=== PATIENT | male | born 1980 | race Caucasian/White ===

== ENCOUNTER 2018-08-26 08:39 | Inpatient (IN) ==
[2018-08-26] MEDS ORDERED: Isovue-370 500 ML BOTTLE IVP ONE (09:25)
[2018-08-26] MEDS ORDERED: Ondansetron 4 MG/2 ML VIAL IVP ONE (09:25)
[2018-08-26] MEDS ORDERED: Clindamycin 900 MG/50 ML 900 MG/50 ML IV.SOLN IVPB ONE (09:25)
[2018-08-26] MEDS ORDERED: Ketorolac 15 MG/ML VIAL IVP ONE (09:25)
--- NOTE | 2018-08-26 09:35 | Emergency Department Note ---
Disposition Clinical Impression: Facial cellulitis Disposition: Admitted As Inpatient Condition: Fair Dental HPI - General Chief complaint: ED Dental/Oral Stated complaint: swollen R face Time Seen by Provider: 08/26/18 08:47 Source: patient Mode of arrival: private vehicle Limitations: no limitations Nursing Notes Reviewed: Yes Vital Signs Reviewed: Yes - History of Present Illness Pt Subjective Complaint: facial pain, facial swelling, gingival pain/swelling 1 - tender, edematous Onset (ago): day(s) Duration: constant Pain Severity: mild Improves with: nothing Worsens with: chewing Context: history of dental caries, poor dental care, spontaneous Associated symptoms: Reports: gum swelling. Denies: fever, tongue swelling, pain with swallowing, ear pain, sore throat Treatment prior to arrival: none - Related Data Previous Rx's Medication Instructions Recorded Sulfacetamide Sodium 10% OPTH 2 drop RIGHT EYE QID 5 Days #1 09/18/17 [Bleph 10] bottle Allergies Allergy/AdvReac Type Severity Reaction Status Date / Time No Known Allergies Allergy Verified 09/18/17 18:20 All systems ED: reviewed and negative except as stated. Review of Systems: As Per HPI Constitutional: Denies: fever, chills, weakness Eyes: Denies: eye pain, eye discharge, vision change ENT ED: Denies: ear pain, throat pain, congestion, dysphagia Cardiovascular: Denies: chest pain, palpitations, dyspnea on exertion Respiratory: Denies: cough, dyspnea, stridor Gastrointestinal: Denies: abdominal pain, nausea, vomiting Musculoskeletal: Denies: neck pain Neurological: Denies: headache, weakness, numbness, paresthesias, vertigo Psychiatric: Denies: homicidal thoughts Hematological/Lymphatic: Denies: easy bleeding, easy bruising, lymphadenopathy Allergic/Immunologic: Reports: facial swelling Past Medical History - Past Medical History Attestation: Yes The following information was validated with the patient. Source: patient Medical history: Reports: no medical history Psychiatric history: Reports: no psych history - Social History Smoking Status: Current every day smoker Smokeless Tobacco Status: No Alcohol use: Reports: occasionally Drug use: Reports: none Physical Exam - General Limitations: no limitations General appearance: alert, in no apparent distress - Head Head exam: atraumatic, normocephalic, normal inspection - Eye Eye exam: Present: normal appearance, PERRL, EOMI, periorbital swelling (inferior, right, mild). Absent: scleral icterus, conjunctival injection, nystagmus, miosis, mydriasis, periorbital tenderness - ENT ENT exam: mucous membranes moist - Expanded ENT Exam External ear exam: Present: normal external inspection. Absent: mastoid tenderness, periauricular adenopathy Nose exam: sinus tenderness (right maxillary). negative: rhinorrhea Mouth exam: Present: tongue normal, other (Canine space edema and mild ten derness). Absent: drooling, trismus, lip swelling, tongue elevation, tounge swelling, laceration Teeth exam: Present: dental caries, gingival swelling 1 - Fractured (all teeth are fractured at or near the alveolar ridge), Dental Tenderness Throat exam: Present: normal inspection. Absent: tonsillar erythema, tonsillomegaly, tonsillar exudate, R peritonsillar mass, L peritonsillar mass, muffled voice - Neck Neck exam: Present: normal inspection, full ROM, trachea midline. Absent: tenderness, meningismus, lymphadenopathy - Chest Chest inspection: Present: normal inspection - Respiratory Respiratory exam: Present: normal lung sounds bilaterally. Absent: respiratory distress, wheezes, stridor - Cardiovascular Cardiovascular exam: Present: regular rate, normal rhythm, normal heart sounds - Extremities Exam Extremities exam: Present: normal inspection - Neurological Exam Neurological exam: Present: alert, oriented X3, CN II-XII intact, normal gait - Psychiatric Psychiatric exam: Present: normal affect, normal mood - Skin Skin exam: Present: warm, dry, intact, normal color Course Course Narrative: Patient presents for evaluation of right facial swelling and pain. The pain started a couple days ago he woke up this morning with significant swelling of the face. He denies paresthesias, vision changes, fever, chills, nausea, vomiting. He has very poor dentition with several fractured and decaying teeth. No obvious oral abscess amenable to draining. Vitals are normal he is afebrile. Labs, meds, and facial CT ordered. CT shows extensive cellulitis of the right side of the face extending into the neck. Case discussed with Dr. Cezar Yang. He agrees with the plan to admit the patient given the extensive cellulitis. He states that he will see the patient after the patient has received at least a day of IV antibiotics. Case discussed with hospitalist. She has accepted the patient for admission. Vital Signs Temperature 97.4 F L 08/26/18 08:41 Pulse Rate 89 08/26/18 08:41 Respiratory Rate 14 08/26/18 08:41 Blood Pressure 122/82 08/26/18 08:41 O2 Sat by Pulse Oximetry 97 08/26/18 08:41 Temperature 97.6 F 08/26/18 15:48 Pulse Rate 80 08/26/18 15:48 Respiratory Rate 16 08/26/18 15:48 Blood Pressure 136/78 08/26/18 15:48 O2 Sat by Pulse Oximetry 100 08/26/18 15:48 Oxygen Delivery Oxygen Delivery Room Air Dental/Oral - Medical Records Medical records reviewed: Yes I reviewed the patient's medical records. - Lab Data Lab results reviewed: Yes I reviewed the patient's lab results. Lab results narrative: Laboratory Last Values WBC 14.0 K/mcL (4.3-11.1) H 08/26/18 09:47 RBC 4.91 M/mcL (4.19-5.50) 08/26/18 09:47 Hgb 15.2 g/dL (12.9-16.9) 08/26/18 09:47 Hct 45.5 % (37.5-50.1) 08/26/18 09:47 MCV 92.7 fL (83.0-100.0) 08/26/18 09:47 MCH 31.0 pg (28.0-33.3) 08/26/18 09:47 MCHC 33.4 g/dL (31.6-35.5) 08/26/18 09:47 RDW 12.5 % (11.5-14.5) 08/26/18 09:47 Plt Count 223 K/mcL (140-400) 08/26/18 09:47 MPV 10.0 fL (9.4-12.4) 08/26/18 09:47 Immature Gran % 0.2 % (0-4) 08/26/18 09:47 Seg Neutrophils % 76.3 % 08/26/18 09:47 14.9 % 08/26/18 09:47 7.6 % 08/26/18 09:47 0.6 % 08/26/18 09:47 0.4 % 08/26/18 09:47 10.7 K/mcL (1.6-8.9) H 08/26/18 09:47 2.1 K/mcL (0.6-4.6) 08/26/18 09:47 1.1 K/mcL (0.0-1.3) 08/26/18 09:47 0.1 K/mcL (0.0-0.6) 08/26/18 09:47 0.1 K/mcL (0.0-0.2) 08/26/18 09:47 Sodium 139 mEq/L (136-145) 08/26/18 09:47 Potassium 4.0 mEq/L (3.5-5.1) 08/26/18 09:47 Chloride 103 mEq/L (98-107) 08/26/18 09:47 Carbon Dioxide 29 mEq/L (23-29) 08/26/18 09:47 BUN 6 mg/dL (6-20) 08/26/18 09:47 1.02 mg/dL (0.70-1.30) 08/26/18 09:47 Est GFR ( Amer) > 60 (> 60) 08/26/18 09:47 Est GFR (Non-Af Amer) > 60 (> 60) 08/26/18 09:47 6 (6-26) 08/26/18 09:47 Glucose 105 mg/dL (70-105) 08/26/18 09:47 286 (280-300) 08/26/18 09:47 Calcium 9.9 mg/dL (8.6-10.3) 08/26/18 09:47 Result diagrams: 08/26/18 09:47 08/26/18 09:47 Lab Results 08/26/18 08/26/18 Range/Units 09:47 09:47 WBC 14.0 H (4.3-11.1) K/mcL RBC 4.91 (4.19-5.50) M/mcL Hgb 15.2 (12.9-16.9) g/dL Hct 45.5 (37.5-50.1) % MCV 92.7 (83.0-100.0) fL MCH 31.0 (28.0-33.3) pg MCHC 33.4 (31.6-35.5) g/dL RDW 12.5 (11.5-14.5) % Plt Count 223 (140-400) K/mcL MPV 10.0 (9.4-12.4) fL Immature Gran % 0.2 (0-4) % Seg Neutrophils % 76.3 % Lymphocytes % 14.9 % Monocytes % 7.6 % Eosinophils % 0.6 % Basophils % 0.4 % Neutrophils # 10.7 H (1.6-8.9) K/mcL Lymphocytes # 2.1 (0.6-4.6) K/mcL Monocytes # 1.1 (0.0-1.3) K/mcL Eosinophils # 0.1 (0.0-0.6) K/mcL Basophils # 0.1 (0.0-0.2) K/mcL Sodium 139 (136-145) mEq/L Potassium 4.0 (3.5-5.1) mEq/L Chloride 103 (98-107) mEq/L Carbon Dioxide 29 (23-29) mEq/L BUN 6 (6-20) mg/dL Creatinine 1.02 (0.70-1.30) mg/dL Est GFR ( Amer) > 60 (> 60) Est GFR (Non-Af Amer) > 60 (> 60) BUN/Creatinine Ratio 6 (6-26) Glucose 105 (70-105) mg/dL Calculated Osmolality 286 (280-300) Calcium 9.9 (8.6-10.3) mg/dL - Radiology Data Radiology results reviewed: Yes I reviewed the patient's radiology results. Face CT 08/26/18 09:25 IMPRESSION: 1. Extensive right facial, right submandibular, and right neck cellulitis. Reactive right submandibular lymphadenopathy. 2. No discrete fluid collection to suggest abscess. 3. Circumferential inflammatory right maxillary sinus mucosal thickening. 4. Numerous dental caries and periodontal disease. D/ / Kenya Pedersen MD / Kenya Pedersen MD Interpreting Provider: Kenya Pedersen MD
[2018-08-26 09:59] LABS: Basophils # 0.1 K/mcL (0.0-0.2); Basophils % 0.4 %; Eosinophils # 0.1 K/mcL (0.0-0.6); Eosinophils % 0.6 %; Hematocrit 45.5 % (37.5-50.1); Hemoglobin 15.2 g/dL (12.9-16.9); Immature Granulocytes % 0.2 % (0-4); Lymphocytes # 2.1 K/mcL (0.6-4.6); Lymphocytes % 14.9 %; Mean Corpuscular HGB Conc 33.4 g/dL (31.6-35.5); Mean Corpuscular Volume 92.7 fL (83.0-100.0); Monocytes # 1.1 K/mcL (0.0-1.3); Monocytes % 7.6 %; Neutrophils # 10.7 K/mcL (1.6-8.9); Platelet Count 223 K/mcL (140-400); Red Blood Count 4.91 M/mcL (4.19-5.50); Red Cell Distribution Width 12.5 % (11.5-14.5); Segmented Neutrophils % 76.3 %
[2018-08-26 10:18] LABS: BUN/Creatinine Ratio 6 (6-26); Blood Urea Nitrogen 6 mg/dL (6-20); Calcium 9.9 mg/dL (8.6-10.3); Carbon Dioxide 29 mEq/L (23-29); Chloride 103 mEq/L (98-107); Glucose 105 mg/dL (70-105); Osmolality,Calculated 286 (280-300); Sodium 139 mEq/L (136-145); eGFR For Non-African Americans > 60 (> 60)
[2018-08-26] MEDS ORDERED: 0.9 % Sodium Chloride 1,000 ML IVC ONE (11:53)
[2018-08-26] MEDS ORDERED: Naloxone 0.4 MG/ML INJ IVP PRN (13:34)
[2018-08-26] MEDS ORDERED: Ampicillin/Sulbactam 3,000 MG in 0.9 % Sodium Chloride Mini Bag 100 ML IVPB SCH (13:50)
--- NOTE | 2018-08-26 13:57 | Internal Med History&Physical ---
Date of Encounter: 08/26/18 Time of Encounter: 14:00 Internal Medicine - H&P: HPI Chief complaint: Facial swelling for one day History of present illness: Mr. Meza is a 37 year old male with no significant pmh presenting with complaints of facial swelling of 1 day duration. Patient has extensive disease in his right canines and says he has had occasional pain in the teeth here and there. He denies any fevers or chills. He says for the past one day, the right side of his face has had progressive swelling. He denies any difficulty swallowing or trouble breathing. He denies any other acute symptoms. In the ER, OMFS was consulted and requested admission for IV antibiotics to reduce his facial swelling after which the teeth could be taken out on discharge. He was given one dose of IV clindamycin and he is being admitted for further management Past Med Surg Social Fam HX - Past Medical History Medical history: no medical history Psychiatric history: no psych history - Social History Smoking Status: Current every day smoker Smokeless Tobacco Status: No Alcohol use: occasionally Drug use: none Internal Medicine - H&P: Meds Sulfacetamide Sodium 10% OPTH [Bleph 10] 2 drop RIGHT EYE QID 5 Days #1 bottle 09/18/17 [Rx] Allergy/AdvReac Type Severity Reaction Status Date / Time No Known Allergies Allergy Verified 09/18/17 18:20 All Systems PM: A 10-system review of systems was performed and is negative for pertinent findings except as documented above in the HPI. - Constitutional Constitutional: no chills, no fever(s), no night sweats Additional comments: facial swelling - EENT Eyes: no change in vision, no discharge, no pain, no photophobia Ears: no ear discharge, no ear pain, no tinnitus Nose, mouth and throat: no dysphagia, no nasal discharge, no neck pain, no sore throat - Cardiovascular Cardiovascular ROS IM: no chest pain, no diaphoresis, no dyspnea, no lightheadedness, no palpitations, no syncope - Respiratory Respiratory: no cough, no dyspnea, no wheezing, no excessive phlegm production - Gastrointestinal Gastrointestinal: no abdominal pain, no diarrhea, no hematemesis, no hematochezia, no melena, no nausea, no vomiting - Musculoskeletal Musculoskeletal ROS IM: no numbness, no tingling - Integumentary Integumentary IM: no rash, no unusual bruising - Neurological Neurological ROS: no confusion, no convulsions, no focal weakness, no numbness, no tingling, no tremor(s) - Hematologic/Lymphatic Hematologic/Lymphatic: no easy bruising - Constitutional Vitals: Temp Pulse Resp BP Pulse Ox 97.4 F L 89 14 122/82 97 08/26/18 08:50 08/26/18 08:50 08/26/18 08:50 08/26/18 08:50 08/26/18 08:50 Exam: Pt has significant face swelling on the right side Oral exam shows several decaying teeth - Head Head exam: Present: atraumatic, normocephalic - Eye Eye exam: Present: PERRL, conjuntiva pink, sclera anicteric Pupils: Present: PERRL - Neck Neck exam general surgery: Present: supple, trachea midline. Absent: lymphadenopathy - Respiratory Respiratory exam: Present: CTAB. Absent: accessory muscle use, rales, rhonchi, wheezes - Cardiovascular Cardiovascular exam: Present: RRR, +S1, +S2. Absent: diastolic murmur, gallop, rubs, systolic murmur - GI/Abdominal GI/Abdominal exam: Present: normal bowel sounds, soft, no peritoneal signs. Absent: distended, tenderness - Extremities Exam Extremities exam: Present: warm, radial pulses palpable and symmetrical. Absent: calf tenderness, cyanotic, pedal edema - Neurological Exam Neurological exam: Present: CN II-XII intact, oriented X3, no focal deficits. Absent: pronater drift, facial droop, speech deficit - Skin Skin exam: Present: dry, intact Internal Med - H&P Results - Labs CBC & Chem 7: 08/26/18 09:47 08/26/18 09:47 Labs: Short CBC 08/26/18 Range/Units 09:47 WBC 14.0 H (4.3-11.1) K/mcL Hgb 15.2 (12.9-16.9) g/dL Hct 45.5 (37.5-50.1) % Plt Count 223 (140-400) K/mcL Neutrophils # 10.7 H (1.6-8.9) K/mcL BMP 08/26/18 09:47 Sodium 139 Potassium 4.0 Chloride 103 Carbon Dioxide 29 BUN 6 Creatinine 1.02 Glucose 105 Calcium 9.9 - Impressions ITS Impressions Face CT 08/26/18 09:25 IMPRESSION: 1. Extensive right facial, right submandibular, and right neck cellulitis. Reactive right submandibular lymphadenopathy. 2. No discrete fluid collection to suggest abscess. 3. Circumferential inflammatory right maxillary sinus mucosal thickening. 4. Numerous dental caries and periodontal disease. D/ / Kenya Pedersen MD / Kenya Pedersen MD Interpreting Provider: Kenya Pedersen MD - Assessment and Plan (1) Facial cellulitis Current Visit: Yes Status: Acute Assessment and plan: Pt has facial swelling and cellulitis of 1 day duration likely secondary to decaying and infected teeth CT face shows Extensive right facial, right submandibular, and right neck cellulitis. Reactive right submandibular lymphadenopathy. No discrete fluid collection to suggest abscess. Will obtain blood cultures, start on vanc and unasyn Discusssed with ENT. If airway compromise noted will consult, otherwise stable at this time OMFS will see as an outpatient when swelling improves (2) Leukocytosis Current Visit: Yes Status: Acute Assessment and plan: Likely secondary to cellulitis. On antibiotics Qualifiers: Qualified Code(s): D72.829 - Elevated white blood cell count, unspecified (3) DVT prophylaxis Current Visit: Yes Status: Acute Assessment and plan: Heparin sc - Time Spent With Patient Total time spent is greater than 50% in coordination of care (as documented) at patient's floor/unit and/or counseling patient:
[2018-08-26] MEDS ORDERED: Piperacillin/Tazobactam 3.375 GM in 0.9 % Sodium Chloride Mini Bag 100 ML IVPB SCH (16:00)
[2018-08-26] MEDS ORDERED: Acetaminophen 325 MG TABLET PO ONE (21:34)
[2018-08-26] MEDS: Ampicillin/Sulbactam 3,000 MG in 0.9 % Sodium Chloride Mini Bag 100 ML IVPB SCH (21:40)
[2018-08-27] MEDS: Ampicillin/Sulbactam 3,000 MG in 0.9 % Sodium Chloride Mini Bag 100 ML IVPB SCH ×4 (02:46→21:32)
[2018-08-27 05:16] LABS: Basophils # 0.1 K/mcL (0.0-0.2); Basophils % 0.6 %; Eosinophils # 0.2 K/mcL (0.0-0.6); Eosinophils % 1.7 %; Hematocrit 43.8 % (37.5-50.1); Hemoglobin 14.6 g/dL (12.9-16.9); Immature Granulocytes % 0.4 % (0-4); Lymphocytes # 2.7 K/mcL (0.6-4.6); Lymphocytes % 20.4 %; Mean Corpuscular HGB Conc 33.3 g/dL (31.6-35.5); Mean Corpuscular Hemoglobin 31.1 pg (28.0-33.3); Mean Corpuscular Volume 93.4 fL (83.0-100.0); Mean Platelet Volume 9.8 fL (9.4-12.4); Monocytes % 7.1 %; Neutrophils # 9.3 K/mcL (1.6-8.9); Platelet Count 215 K/mcL (140-400); Red Blood Count 4.69 M/mcL (4.19-5.50); Red Cell Distribution Width 12.6 % (11.5-14.5); Segmented Neutrophils % 69.8 %
[2018-08-27] MEDS: *HR* Heparin 5,000 UNIT/ML VIAL SQ SCH ×3 (05:32→21:32)
[2018-08-27 05:34] LABS: BUN/Creatinine Ratio 9 (6-26); Blood Urea Nitrogen 9 mg/dL (6-20); Calcium 9.5 mg/dL (8.6-10.3); Carbon Dioxide 29 mEq/L (23-29); Chloride 105 mEq/L (98-107); Glucose 101 mg/dL (70-105); Magnesium 2.3 mg/dL (1.6-2.6); Osmolality,Calculated 289 (280-300); Phosphorous 3.2 mg/dL (2.7-4.5); Sodium 140 mEq/L (136-145); eGFR For Non-African Americans > 60 (> 60)
--- NOTE | 2018-08-27 11:48 | Internal Med Progress Note ---
Hospitalist Progress Note - Encounter Date of Encounter: 08/27/18 Time of Encounter: 11:45 - Subjective Interval History: Patient still having right sided face pain, only slightly better. Complains of headache. Denies fevers/chills. - Exam Vitals: Temp Pulse Resp BP Pulse Ox 97.5 F L 66 15 127/76 98 08/27/18 10:35 08/27/18 10:35 08/27/18 10:35 08/27/18 10:35 08/27/18 10:35 Exam: ENT: Pt has significant face swelling on the right side, TTP Oral exam shows several decaying teeth both upper and lower palates + right submandibular LA - Head Head exam: Present: atraumatic, normocephalic - Eye Eye exam: Present: PERRL, conjuntiva pink, sclera anicteric Pupils: Present: PERRL - Neck Neck exam general surgery: Present: supple, trachea midline. Absent: lymphadenopathy - Respiratory Respiratory exam: Present: CTAB. Absent: accessory muscle use, rales, rhonchi, wheezes - Cardiovascular Cardiovascular exam: Present: RRR, +S1, +S2. Absent: diastolic murmur, gallop, rubs, systolic murmur - GI/Abdominal GI/Abdominal exam: Present: normal bowel sounds, soft, no peritoneal signs. Absent: distended, tenderness - Extremities Exam Extremities exam: Present: warm, radial pulses palpable and symmetrical. Absent: calf tenderness, cyanotic, pedal edema - Neurological Exam Neurological exam: Present: CN II-XII intact, oriented X3, no focal deficits. Absent: pronater drift, facial droop, speech deficit - Skin Skin exam: Present: dry, intact - Assessment and Plan (1) Facial cellulitis Current Visit: Yes Status: Acute Assessment and Plan: Pt has facial swelling and cellulitis of 1 day duration likely secondary to decaying and infected teeth CT face shows Extensive right facial, right submandibular, and right neck cellulitis. Reactive right submandibular lymphadenopathy. No discrete fluid collection to suggest abscess. Blood cultures No growth to date Admitting physician discussed with ENT. OMFS will see as an outpatient when swelling improves Currently no signs of airway compromise Continue Vanc/Unasyn (2) Leukocytosis Current Visit: Yes Status: Acute Assessment and Plan: Likely secondary to cellulitis. On antibiotics Only slight improvement from 14k to 13.4k today. Recheck tomorrow. Continue Vanc/Unasyn (3) DVT prophylaxis Current Visit: Yes Status: Acute Assessment and Plan: Heparin sc - Time Spent with Patient Total time spent is greater than 50% in coordination of care (as documented) at patient's floor/unit and/or counseling patient: Internal Medicine: Result - Labs CBC & Chem 7: 08/27/18 04:56 08/27/18 04:56 Labs: Short CBC 08/27/18 Range/Units 04:56 WBC 13.4 H (4.3-11.1) K/mcL Hgb 14.6 (12.9-16.9) g/dL Hct 43.8 (37.5-50.1) % Plt Count 215 (140-400) K/mcL Neutrophils # 9.3 H (1.6-8.9) K/mcL BMP 08/27/18 04:56 Sodium 140 Potassium 4.0 Chloride 105 Carbon Dioxide 29 BUN 9 Creatinine 0.96 Glucose 101 Calcium 9.5 Consult Discharge Plan - Plan Referrals: NONE,PCP [Primary Care Provider] - (2) Leukocytosis Qualifiers: Qualified Code(s): D72.829 - Elevated white blood cell count, unspecified
[2018-08-27] MEDS: Acetaminophen 325 MG TABLET PO PRN ×2 (11:54→23:45)
[2018-08-27] MEDS: Nicotine 14 MG PATCH.TD24 TD SCH (11:57)
[2018-08-28 01:42] LABS: Basophils # 0.1 K/mcL (0.0-0.2); Eosinophils # 0.4 K/mcL (0.0-0.6); Eosinophils % 3.6 %; Hematocrit 41.1 % (37.5-50.1); Hemoglobin 14.1 g/dL (12.9-16.9); Immature Granulocytes % 0.3 % (0-4); Lymphocytes # 3.5 K/mcL (0.6-4.6); Lymphocytes % 34.9 %; Mean Corpuscular HGB Conc 34.3 g/dL (31.6-35.5); Mean Corpuscular Hemoglobin 31.5 pg (28.0-33.3); Mean Corpuscular Volume 91.9 fL (83.0-100.0); Mean Platelet Volume 9.8 fL (9.4-12.4); Monocytes # 0.8 K/mcL (0.0-1.3); Monocytes % 7.7 %; Neutrophils # 5.3 K/mcL (1.6-8.9); Platelet Count 214 K/mcL (140-400); Red Blood Count 4.47 M/mcL (4.19-5.50); Red Cell Distribution Width 12.4 % (11.5-14.5); Segmented Neutrophils % 52.5 %
[2018-08-28] MEDS: Ampicillin/Sulbactam 3,000 MG in 0.9 % Sodium Chloride Mini Bag 100 ML IVPB SCH ×2 (03:36→08:32)
[2018-08-28] MEDS: *HR* Heparin 5,000 UNIT/ML VIAL SQ SCH ×3 (06:14→22:06)
[2018-08-28] MEDS: Nicotine 14 MG PATCH.TD24 TD SCH (08:32)
--- NOTE | 2018-08-28 12:37 | Internal Med Progress Note ---
Hospitalist Progress Note - Encounter Date of Encounter: 08/28/18 Time of Encounter: 12:34 - Subjective Interval History: Pt states facial swelling has been improving. He denies fever, chills, N/V or diarrhea. - Exam Vitals: Temp Pulse Resp BP Pulse Ox 97.9 F 64 16 114/71 98 08/28/18 10:57 08/28/18 10:57 08/28/18 10:57 08/28/18 10:57 08/28/18 10:57 Exam: Exam: ENT: Pt facial swelling on the right side improivng but still TTP Oral exam shows several decaying teeth both upper and lower palates + right submandibular LA Head exam: Present: atraumatic, normocephalic Eye exam: Present: PERRL, conjuntiva pink, sclera anicteric Pupils: Present: PERRL Neck exam general surgery: Present: supple, trachea midline. Absent: lymphadenopathy Respiratory exam: Present: CTAB. Absent: accessory muscle use, rales, rhonchi, wheezes Cardiovascular exam: Present: RRR, +S1, +S2. Absent: diastolic murmur, gallop, rubs, systolic murmur GI/Abdominal exam: Present: normal bowel sounds, soft, no peritoneal signs. Absent: distended, tenderness Extremities exam: Present: warm, radial pulses palpable and symmetrical. Absent: calf tenderness, cyanotic, pedal edema Neurological exam: Present: CN II-XII intact, oriented X3, no focal deficits. Absent: pronater drift, facial droop, speech deficit Skin exam: Present: dry, intact - Assessment and Plan (1) Facial cellulitis Current Visit: Yes Status: Acute Assessment and Plan: Pt has facial swelling and cellulitis of 1 day duration likely secondary to decaying and infected teeth CT face shows Extensive right facial, right submandibular, and right neck cellu litis. Reactive right submandibular lymphadenopathy. No discrete fluid collection to suggest abscess. Blood cultures No growth to date Admitting physician discussed with ENT. OMFS will see as an outpatient when swelling improves Currently no signs of airway compromise On Vanc/Unasyn but will switch to PO Clindamycin. IF continues to improve on Clinda, will DC on a few more days and have him follow up out pt with an pasting machine offbearer. (2) Leukocytosis Current Visit: Yes Status: Acute Assessment and Plan: Secondary to cellulitis and infected dental caries. WBC down from 14k --> 13.4k -->10.0. Recheck tomorrow. On Vanc/Unasyn but will switch to PO Clindamycin. IF continues to improve on Clinda, will DC on a few more days and have him follow up out pt with an pasting machine offbearer. (3) Infected dental caries Current Visit: Yes Status: Acute Assessment and Plan: He does admit to being aware of dental caries but was unable to have procedure done due to financial issues. DVT Prophylaxis: Heparin - Time Spent with Patient Total time spent is greater than 50% in coordination of care (as documented) at patient's floor/unit and/or counseling patient: less than 15 minutes Plan of Care Discussed with: patient Internal Medicine: Result - Labs CBC & Chem 7: 08/28/18 01:27 08/27/18 04:56 Labs: Short CBC 08/28/18 Range/Units 01:27 WBC 10.0 (4.3-11.1) K/mcL Hgb 14.1 (12.9-16.9) g/dL Hct 41.1 (37.5-50.1) % Plt Count 214 (140-400) K/mcL Neutrophils # 5.3 (1.6-8.9) K/mcL Consult Discharge Plan - Plan Referrals: NONE,PCP [Primary Care Provider] - (2) Leukocytosis Qualifiers: Qualified Code(s): D72.829 - Elevated white blood cell count, unspecified
[2018-08-29] MEDS: *HR* Heparin 5,000 UNIT/ML VIAL SQ SCH (05:03)
[2018-08-29] MEDS ORDERED: Aminoglycoside Consult 1 EACH MC ONE (08:15)
[2018-08-29] MEDS: Nicotine 14 MG PATCH.TD24 TD SCH (08:31)
[2018-08-29 11:20] VITALS: BP 114/70
--- NOTE | 2018-08-29 11:31 | Discharge Summary ---
- NOTES TO OUTPATIENT PROVIDER Notes to Outpatient Provider: Follow-up with dentist in 1-2 weeks. Orders not resulted at time of discharge: Pending orders 08/26/18 09:40 Culture,Blood [BC] Stat Date of Encounter: 08/29/18 Time of Encounter: 11:27 - Discharge Diagnosis (1) Facial cellulitis Priority: Primary Status: Acute (2) Leukocytosis Priority: Secondary Status: Acute Qualifiers: Qualified Code(s): D72.829 - Elevated white blood cell count, unspecified (3) Infected dental caries Priority: Primary Status: Acute Hospital course: Mr. Meza is a 37 year old male with no significant past medical history came in with facial swelling and dental pain for past one day. CT showed extensive right facial submandibular Cellulitis, reactive submandibular lymphadenopathy without any evidence of abscess. Vision was started on vancomycin and Zosyn. Blood cultures remain negative. Patient's swelling redness and white count improved. Patient was otherwise stable to be discharged to finish oral antibiotics with clindamycin for total 7 days. Patient will need to follow with dentist for further management within a week. Discharge discussed with: patient, family, nurse - Time Spent with Patient Total time spent providing and/or coordinating discharge services: Time spent: Greater than 30 minutes (30) - Discharge Medications Prescriptions: New Clindamycin [Cleocin] 300 mg PO Q6HR 4 Days #16 capsule Home Medications: Clindamycin [Cleocin] 300 mg PO Q6HR 4 Days #16 capsule 08/29/18 [Rx] Allergies/Adverse Reactions: Allergy/AdvReac Type Severity Reaction Status Date / Time No Known Allergies Allergy Verified 08/27/18 11:00 Date of admission: 08/27/18 19:39 Primary care physician: PCP NONE Discharging clinician: [place] - Constitutional Vitals: Temp Pulse Resp BP Pulse Ox 98.3 F 70 16 114/70 98 08/29/18 11:17 08/29/18 11:17 08/29/18 11:17 08/29/18 11:17 08/29/18 11:17 Exam: General: In no acute distress. multiple dental caries and decaying tooths. Rt submandibular lymphadenopathy. Respiratory exam: CTAB. no accessory muscle use, rales, rhonchi, wheezes Cardiovascular exam: RRR, +S1, +S2. no murmur, gallop, rubs. GI/Abdominal exam: Non-tender, Non-distended, normal bowel sounds, soft, no peritoneal signs. Extremities exam: no pedal edema, pulses palpable in b/l lower extremities. no calf tenderness Neurological exam: CN II-XII intact, AO X3, no focal deficits. Skin exam: minimal facial swelling. - Patient Status Disposition: Home, Self-Care Condition: Fair - Discharge Instructions Follow Up With: NONE,PCP [Primary Care Provider] - - Diet and Activity Activity: increase activity as tolerated
== END 2018-08-29 13:18 | disposition home or self-care (01) | DRG 603 ==
LOC: 3ANU 08:39 → EMEROOARM 08:39 → 3ANU 13:45 → SUATTDRO 08-27 19:39
PROVIDERS: ADMIT Internal Medicine; ATTEND Internal Medicine